=== PATIENT | male | born 1955 | race Caucasian/White ===

== ENCOUNTER 2016-10-31 09:59 | Day surgery (SDC) | payer OTHER ==
--- NOTE | 2016-10-31 08:41 | PDHPUP ---
History & Physical Update H&P update statement: This history and physical update is based on an assessment of the patient which was completed after admission or registration (within 24 hours), but prior to the surgery/procedure. H&P update: H&P reviewed & patient examined, no change in patient's condition since H&P completed
[~2016-10-31 09:59] MED LIST: NS 1,000 ML IV ONE
--- NOTE | 2016-10-31 11:24 | CPEKG ---
Heart Rate: 61 RR Interval: 984 P-R Interval: 204 QRSD Interval: 82 QT Interval: 440 QTC Interval: 444 P [place]: 36 QRS [place]: 5 T Wave [place]: 24 EKG Severity - BORDERLINE ECG - EKG Impression: SINUS RHYTHM EKG Impression: PROBABLE LEFT ATRIAL ABNORMALITY Electronically Signed By: Audelia Curtis 31-Oct-2016 14:17:50
--- NOTE | 2016-10-31 12:00 | PDANEPAE ---
ANE Past Medical History - Endocrine History Hx Diabetes: No ANE Review of Systems Review of Systems: ANE Patient History - Allergies Allergies/Adverse Reactions: No Known Allergies Allergy (Unverified 10/12/13 18:57) - Smoking Hx Smoking Status: Never smoked
== END 2016-10-31 10:40 | disposition home or self-care (01) ==
LOC: FCATH 09:59
PROVIDERS: ATTEND Internal Medicine Cardiovascular Disease
DX: I48.91 Unspecified atrial fibrillation (principal); Z53.09 Procedure and treatment not carried out because of other contraindication; I49.3 Ventricular premature depolarization; K21.9 Gastro-esophageal reflux disease without esophagitis; M51.86 Other intervertebral disc disorders, lumbar region

== ENCOUNTER → 2018-03-10 | Outpatient (CLI) | payer OTHER ==
[~2018-03-10] MED LIST changes: +IOPAMIDOL (ISOVUE 370) 100 ML BTL IV ONE; -NS 1,000 ML IV ONE
== END ==
LOC: FIMAGING 07:36
PROVIDERS: ATTEND Internal Medicine Cardiovascular Disease
DX: I48.91 Unspecified atrial fibrillation (principal); K44.9 Diaphragmatic hernia without obstruction or gangrene
CPT/HCPCS: Q9967

== ENCOUNTER 2018-03-17 06:29 | Observation (INO) | payer OTHER ==
[2018-03-17] MEDS ORDERED: NS 1,000 ML IV ONE (06:30)
[2018-03-17] MEDS ORDERED: HEPARIN/DEXTROSE 25,000 UNIT/500 ML BAG ONE (07:09)
[2018-03-17] MEDS ORDERED: IOPAMIDOL (ISOVUE-300) 100 ML BTL ONE (07:10)
[2018-03-17] MEDS ORDERED: LIDOCAINE 1% 300 MG/30 ML SDV ONE (07:10)
[2018-03-17] MEDS ORDERED: HEPARIN 10,000 UNIT/10 ML MDV (1,000 UNIT/ML) ONE (07:10)
[2018-03-17] MEDS ORDERED: BUPIVACAINE 0.75% 10 ML SDV ONE (07:10)
[2018-03-17 07:15] LABS: PLATELET COUNT 213 10^3/uL (150-400)
[2018-03-17 07:32] LABS: INR 0.9 (0.83-1.16); PROTIME(PATIENT) 12.4 SEC (12.0-15.0)
--- NOTE | 2018-03-17 08:15 | PDGENHP ---
History & Physical Chief Complaint: Paroxysmal atrial fibrillation History of Present Illness: Increasing frequency of breakthrough episodes of symptomatic paroxysmal atrial fibrillation despite Flecainide and Metoprolol. Relevant Physical Exam: General: A&Ox4, no apparent distress. Respiratory: CTA. Cardiac: Regular rate and rhythm, S1, S2. Extremities: Pulses 2+ bilaterally, no edema Cardiorespiratory Assessment: Proceed with AF ablation as planned for today. Procedure will be preceeded by a AIDAN. Plan to re-start Eliquis 6hrs post procedure
[2018-03-17] MEDS ORDERED: MIDAZOLAM 2 MG/2 ML VIAL ONE (08:30)
[2018-03-17] MEDS ORDERED: MIDAZOLAM 2 MG/2 ML VIAL IVP ONE (08:31)
--- NOTE | 2018-03-17 08:31 | PDANEPAE ---
ANE History of Present Illness 62 yo for AF ablation ANE Past Medical History - Cardiovascular History Hx Arrhythmias: Yes - Pulmonary History Hx Sleep Apnea: No - Endocrine History Hx Diabetes: No ANE Review of Systems Review of systems is: negative Review of Systems: ANE Patient History - Allergies Allergies/Adverse Reactions: No Known Allergies Allergy (Verified 03/10/18 11:00) - Home Medications Home Medications: Apixaban [Eliquis] 5 mg PO BID 03/10/18 [Last Taken 3 Days Ago ~03/14/18] Flecainide Acetate 50 mg PO BID 03/10/18 [Last Taken 3 Days Ago ~03/14/18] Glucosamine Sulfate [Glucosamine Sulfate 500 MG (*)] 500 mg PO DAILY 03/10/18 [ Last Taken 1 Day Ago ~03/16/18] Lansoprazole [Prevacid] 30 mg PO DAILY 03/10/18 [Last Taken 1 Day Ago ~03/16/18] Metoprolol Succinate Xr [Toprol Xl 25 mg (*)] 25 mg PO DAILY 03/10/18 [Last Taken 1 Day Ago ~03/16/18] Sayre-3 Fatty Acids [Fish Oil 1000 mg (*)] 1,000 mg PO DAILY 03/10/18 [Last Taken 1 Day Ago ~03/16/18] Sildenafil Citrate [Viagra] 100 mg PO AD PRN 03/10/18 [Last Taken Unknown] - Smoking Hx Smoking Status: Never smoked ANE Labs/Vital Signs - Labs Result Diagrams: 03/17/18 06:50 03/17/18 06:50 - Vital Signs Height: 177.8 cm Weight: 81.647 kg ANE Physical Exam - Airway Neck exam: FROM Mallampati Score: Class 2 - Pulmonary Pulmonary: no respiratory distress - Cardiovascular Cardiovascular: regular rate and rhythym - ASA Status ASA Status: II ANE Anesthesia Plan Anesthesia Plan: general endotracheal anesthesia
[2018-03-17] MEDS ORDERED: fentaNYL 100 MCG/2 ML INJ ONE ×3 (08:54→10:05)
[2018-03-17] MEDS ORDERED: PROPOFOL 200 MG/20 ML VIAL ONE (08:54)
[2018-03-17] MEDS ORDERED: SCOPOLAMINE HYDROBROMIDE 1 MG/3 DAYS PATCH TD SCH (09:15)
[2018-03-17] MEDS ORDERED: PROTAMINE SULFATE 50 MG/5 ML VIAL IVP ONE (10:23)
[2018-03-17] MEDS ORDERED: PROMETHAZINE HCL 25 MG/ML INJ IVP PRN (11:00)
[2018-03-17] MEDS ORDERED: ONDANSETRON 4 MG/2 ML VIAL IVP PRN (11:00)
[2018-03-17] MEDS ORDERED: NALOXONE HCL 0.4 MG/ML INJ IVP PRN (11:00)
[2018-03-17] MEDS ORDERED: fentaNYL 100 MCG/2 ML INJ IVP PRN (11:00)
--- NOTE | 2018-03-17 11:06 | EPPROC ---
Electrophysiology Procedure Note: ELECTROPHYSIOLOGIC STUDY AND BALLOON-CATHETER MEDIATED CRYOABLATION FOR PAROXYSMAL ATRIAL FIBRILLATION Procedures performed: 62856-97 EP evaluation with RA/RV/LA pace/record, with arrhythmia induction 11313-74 EP evaluation with RA/RV pace record, insert/reposition catheter, with arrhythmia induction 94476 Atrial fibrillation ablation Intracardiac echocardiogram Transseptal puncture Fluoroscopy INDICATION: Paroxysmal atrial fibrillation PROCEDURE: The patient arrived in the Electrophysiology Laboratory in the fasting state. The right groin, left groin and right infraclavicular area were prepped and draped in the usual sterile fashion. Anesthesiologist administered general anesthesia Dr. Max Mccracken . All catheters were placed percutaneously using the Seldinger technique and advanced into position under fluoroscopic guidance. One #7 [place] deflectable octapolar electrode catheter was placed in the His-bundle position via the left femoral vein (2mm spacing, IVC electrode for unipolar recordings). This catheter was placed in the coronary sinus after transseptal puncture and later placed in the SVC-R subclavian vein junction to pace the right phrenic nerve during right pulmonary vein ablation. One #8 [place] AcuNaV ultrasound catheter was placed in the left femoral vein and advanced into the right atrium. One #4 [place] sheath was inserted into the left femoral artery via percutaneous technique and used for continuous arterial blood pressure monitoring and intermittent ACT determination. Programmed stimulation was performed from the right atrium, left atrium (CS) and right ventricle. There was no evidence of AV accessory pathway. Intracardiac echo evaluation of the left atrium and pulmonary veins was performed. Baseline ACT was drawn and heparin bolus was administered and heparin drip was started prior to transseptal puncture. ACT was checked every 15 minutes and maintained in the range of 350-400 seconds. One 14Fr short sheath was placed in the right femoral vein. One 8Fr SL1 sheath was advanced into the right atrium via the 14Fr short sheath. Transseptal puncture was performed under intracardiac ultrasound, fluoroscopic and hemodynamic guidance placing the sheath into the left atrium. [place] RF needle ( C0 curve) was used. The mean left atrial pressure was __ mmHg. 3D map of left atrial and pulmonary veins was performed using PentaRay catheter. The SL1 sheath was exchanged for a Medtronic Flexcath sheath using an Amplatz stiff guide wire. A 28 mm Cryoballoon catheter with a 20 mm Achieve catheter was placed via the sheath into the left atrium. Intracardiac ultrasound and PV angiograms were used to assist in placing the mapping catheter at the antrum of the pulmonary veins. All pulmonary veins were isolated successfully using cryoballoon ablation using freeze/thaw/freeze cycles at 2-3-minute intervals, with good [id number]-la-ymredh of isolation. Coumadin ridge/Ligament of Gomez region was ablated. Pre and post pulmonary vein recordings were measured on the spiral Achieve catheter to ensure complete pulmonary vein isolation. During the right-sided ablation, phrenic nerve pacing was performed to assess the phrenic nerve strength ( manually and with ICE visualization of liver movement during phrenic capture) and the phrenic nerve was intact throughout the right-sided ablation and at the end of the procedure. An esophageal temperature probe (12 electrode, Circa) was placed by the anesthesiologist at the beginning of the procedure. Esophageal temperature was monitored continuously and cryoablation was interrupted if esophageal temperature was <15 C. Cryoapplications 6 total cryoablation time 980 s. ICE imaging post ablation was consistent with pre ablation imaging with no changes noted, moreover there was no left atrial/left ventricular thrombus and no pericardial effusion. The catheters were withdrawn. Protamine was given. The sheaths were removed and subcutaneous pursestring suture and manual pressure was used for hemostasis. The patient was recovered from anesthesia. There were no complications. The patient was arousable and moving all four extremities at the end of the procedure. CONCLUSIONS: 1. Paroxysmal atrial fibrillation. 2. Successful pulmonary vein isolation procedure (left and right pulmonary vein antrum) using cryoballoon ablation. 3. No apparent complications. Patient Problems: Problems Problem Status Onset Atrial fibrillation Acute
--- NOTE | 2018-03-17 12:14 | POSTANESTH ---
Post Anesthetic Evaluation Cardiovascular Status: Normal, Stable Respiratory Status: Normal, Stable Level of Consciousness/Mental Status: Can Participate in Eval Pain Control: Adequate, Prn Tx Ordered Nausea/Vomiting Control: Adequate, Prn Tx Ordered Complications Possibly Related to Anesthesia: None Noted
--- NOTE | 2018-03-17 18:06 | CPEKG ---
Test Reason : OPEN Blood Pressure : / mmHG Vent. Rate : 069 BPM Atrial Rate : 070 BPM P-R Int : 203 ms QRS Dur : 095 ms QT Int : 417 ms P-R-T Axes : 023 -09 -02 degrees QTc Int : 447 ms Sinus rhythm Confirmed by Audelia Curtis ([id number]) on 03/17/2018 6:06:25 PM Referred By: Confirmed By:Audelia Curtis
--- NOTE | 2018-03-17 18:11 | CPEKG ---
Test Reason : OPEN Blood Pressure : / mmHG Vent. Rate : 066 BPM Atrial Rate : 066 BPM P-R Int : 171 ms QRS Dur : 096 ms QT Int : 437 ms P-R-T Axes : -09 002 005 degrees QTc Int : 458 ms Sinus rhythm Confirmed by Audelia Curtis ([id number]) on 03/17/2018 6:10:50 PM Referred By: Tyler Hernandez Confirmed By:Audelia Curtis
[2018-03-17] MEDS: APIXABAN 5 MG TAB PO SCH (19:06)
[2018-03-17] MEDS ORDERED: CEPACOL LOZENGE PO PRN (19:10)
[2018-03-18 06:14] LABS: PLATELET COUNT 209 10^3/uL (150-400)
[2018-03-18] MEDS: APIXABAN 5 MG TAB PO SCH (08:46)
[2018-03-18] MEDS ORDERED: PNEUMOCOCCAL 0.5ML VACCINE VIAL (PNEUMOVAX 23) IM ONE (08:48)
[2018-03-18] MEDS ORDERED: METOPROLOL SUCCINATE XR 25 MG TAB PO SCH (09:00)
[2018-03-18] MEDS ORDERED: LANSOPRAZOLE SUSP 3 MG/ML UDSYR (Peds) PO SCH (09:00)
[2018-03-18 09:49] VITALS: BP 106/74
--- NOTE | 2018-03-18 10:06 | ECHO ---
[email or web address] [address] [address] Main: [phone] Fax: Transthoracic Echocardiogram Name: KRISHAN CORRAL MR#: [id number] Study Date: 03/18/2018 Study Time: 07:46 AM Date of : 1955 Age: 62 year(s) Height: 177.8 cm (70 in.) Weight: 81.65 kg (180 lb.) BSA: 2 m2 Gender: Male Examination: Echo Indication: Post EP exam Image Quality: Contrast: Requested by: Tyler Hernandez BP: 109 mmHg/70 mmHg Heart Rate: Rhythm: Normal sinus rhythm Indication: Post EP exam Procedure Staff Twine Winder: Moncho Gross RDCS Reading Physician: Tyler Hernandez MD Requesting Provider: Conclusions: Normal global systolic LV function. Grade 1 diastolic dysfunction (abnormal relaxation). Left to right shunt across the interatrial septum consistent with transseptal puncture. Trivial mitral valve regurgitation. Trivial aortic valve regurgitation. Trivial tricuspid valve regurgitation. Measurements: Chambers Valvular Assessment AV/MV Valvular Assessment TV/PV Normal Normal Normal Name Value Range Name Value Range Name Value Range Ao Josefina (MM): 3.6 cm (2.2 cm-3.7 LVOT Vmax: 0.83 m/s (0.7 m/s-1.1 TR Vmax: 2.54 mm/s ( - ) cm) m/s) TR PGmax: 26 mmHg ( - ) IVSd (2D): 0.9 cm (0.6 cm-1.1 MV E Vmax: 0.78 m/s ( - ) syst. PAP: 31 mmHg ( - ) cm) MV A Vmax: 0.68 m/s ( - ) PV Vmax: 0.99 m/s (0.6 m/s-0.9 LVDd (2D): 4.8 cm (4.2 cm-5.9 MV E/A: 1.15 ( - ) m/s) cm) PV PGmax: 4 mmHg ( - ) LVDs (2D): 2.3 cm (2.1 cm-4 cm) LVPWd (2D): 1.1 cm (0.6 cm-1 cm) LVEF (2D): 83 (>=54 %) Continued Measurements: Chambers Valvular Assessment AV/MV Valvular Assessment TV/PV Name Value Name Value Name Value LADs Lon.6 cm MV E/E' Septal: 12.40 CVP (est.): 5 mmHg LA Area: 18.8 cm2 MV E/E' Lateral: 10.50 LA Volume: 47 ml Patient: KRISHAN CORRAL Study Date: 03/18/2018 Page 1 of 2 07:46 AM LA Volume Index: 23.5 ml/m2 Findings: Left Ventricle: Normal size left ventricle. No LV hypertrophy. Normal global systolic LV function. EF is 83 %. No regional wall motion abnormality. Grade 1 diastolic dysfunction (abnormal relaxation). Right Ventricle: Normal size right ventricle. Normal RV function. Left Atrium: The left atrium is normal in size. Left to right shunt across the interatrial septum consistent with transseptal puncture. Right Atrium: The right atrium is normal in size. Mitral Valve: The mitral valve is normal in appearance and function. Trivial mitral valve regurgitation. Aortic Valve: The aortic valve is tri-leaflet. The aortic valve is normal in appearance and function. Trivial aortic valve regurgitation. Tricuspid Valve: The tricuspid valve is normal in appearance and function. Trivial tricuspid valve regurgitation. Pulmonic Valve: The pulmonic valve is normal in appearance and function. Aorta: The aorta is normal. Pericardium: No pericardial effusion. (No Signature Object) Patient: KRISHAN CORRAL Study Date: 03/18/2018 Page 2 of 2 07:46 AM [id number]
--- NOTE | 2018-03-18 16:49 | GDS ---
SUPERVISING RHYTHMIC GYMNASTICS COACH: Tyler Hernandez MD ADMISSION DIAGNOSIS: Paroxysmal atrial fibrillation. DISCHARGE DIAGNOSES: Paroxysmal atrial fibrillation status post cryoballoon pulmonary vein isolation . PROCEDURES: Performed during hospitalization: 1. Electrocardiogram. 2. Echocardiogram. 3. Electrophysiology study. 4. Balloon catheter mediated cryoballoon ablation for paroxysmal atrial fibrillation. HOSPITAL COURSE: Patient presented March 17, 2018 for atrial fibrillation ablation in the setting of increasing frequency of symptomatic paroxysmal atrial fibrillation. He underwent successful cryob alloon pulmonary vein isolation with Dr. Tyler Hernandez yesterday without any intra-procedure complicatio ns. He did very well overnight. He did describe 1 very brief episode of visual disturbances followi ng his procedure, although this resolved quickly and was without other associated symptoms. He has b een up ambulating around his room this morning without issue and he is appropriate and stable for dis charge home today. PHYSICAL EXAMINATION: GENERAL: He is alert and oriented x4. No apparent distress. VITAL SIGNS: B lood pressure 106/62, heart rate 68, respiratory rate 16, SpO2 98% on room air, temp 36.7. RESPIRATO RY: Lungs are clear to auscultation without adventitious breath sounds. CARDIAC: Normal S1, S2, no S3, S4, or murmurs. Rhythm is regular. ABDOMEN: Normoactive bowel sounds times all 4 quadrants, n o masses or tenderness. Abdomen is soft. SKIN: [place], warm, dry without cyanosis, clubbing, or mendez pheral edema. EXTREMITIES: Bilateral pursestring sutures removed intact without evidence of hematom a, redness, oozing, swelling, or warmth. Pulses are 2+ bilaterally, no edema. LABORATORY STUDIES: Drawn today: WBCs 13.24. CBC is otherwise stable compared to preprocedure. BM P is stable compared to preprocedure. Troponin 11.9. Elevated WBCs and troponin expected in the pos tprocedure setting. PROCEDURES: Electrophysiology study and atrial fibrillation ablation as mentioned above. Preliminar y echocardiogram done this morning demonstrates normal left ventricular systolic function without new wall motion abnormalities or pericardial effusion. Electrocardiogram is done this morning demonstra juan normal sinus rhythm without new ST or T-wave abnormalities. No apparent interval abnormalities. DISCHARGE DISPOSITION: Patient will be discharged home in stable condition. He is under activity re strictions as below. DISCHARGE MEDICATIONS: Please see discharge medication reconciliation sheet for full details. Enrique david note that patient's anticoagulant has been restarted and he is to take an antacid for the next 6 we eks. DISCHARGE INSTRUCTIONS: Post atrial fibrillation ablation instructions reviewed with patient in [facility]. We discussed activity restrictions including lifting no more than 10 pounds and avoidance of sub merged bathing for the next 10 days. He will get up and walk around every 45 minutes for the next 45 days. He will avoid unpressurized air travel or scuba diving for the next 6 months and he will pres ent to our clinic for an echocardiogram prior to engaging in either of these activities. We also rev iewed bleeding precautions, medication compliance, monitoring for signs and symptoms of infection, mo nitoring for atrial esophageal fistula, and monitoring for sustained arrhythmia. He will continue hi s Eliquis for the next 3 months, at which time we may consider discontinuing this medication in light of his low risk CHADS Vasc score. At the time of discharge, the patient verbalizes understanding re garding all discharge instructions without questions or concerns. He has a followup visit scheduled in 2 weeks and he will contact our clinic with any new or concerning symptoms prior to his upcoming v isit. Time spent on discharge greater than 30 minutes. /[id number]/MODL
--- NOTE | 2018-03-18 17:04 | CPEKG ---
Test Reason : OPEN Blood Pressure : / mmHG Vent. Rate : 069 BPM Atrial Rate : 069 BPM P-R Int : 178 ms QRS Dur : 094 ms QT Int : 418 ms P-R-T Axes : 004 -02 015 degrees QTc Int : 448 ms Sinus rhythm Borderline T wave abnormalities Compared with 03/17/2018 T abnl new Confirmed by Audelia Curtis ([id number]) on 03/18/2018 5:04:00 PM Referred By: Tyler Hernandez Confirmed By:Audelia Curtis
[2018-03-20] MEDS ORDERED: PATCH REMOVAL 1 EA PATCH TD SCH (09:13)
== END 2018-03-18 12:15 | disposition home or self-care (01) ==
LOC: FCATH 06:29 → F2N 10:53
PROVIDERS: ADMIT Internal Medicine Cardiovascular Disease; ATTEND Internal Medicine Cardiovascular Disease
DX: I48.0 Paroxysmal atrial fibrillation (principal); Z23 Encounter for immunization
CPT/HCPCS: 90471; 93005; 93306; 93312; 93613; 93656; 93662; C1893; G0378; C1730; C1731; C1732; C1733; C1759; C1766; G0009; J1644; J2250; J2704; J2720; J3010; Q9967